=== PATIENT | female | born 1945 | race Caucasian/White ===

== ENCOUNTER 2022-02-20 05:19 | Day surgery (SDC) | payer MEDICARE ==
[~2022-02-20] VITALS: Ht 152.4 cm; Wt 96.5 kg
[2022-02-20] VITALS (7 sets, daily range): BP systolic 123–149; BP diastolic 50–67; PULSE 61–93; TEMP 97.6–98.5
[2022-02-20] MEDS ORDERED: SYNTHROID0.088 MG/T PO (06:21)
[2022-02-20] MEDS ORDERED: HYZAAR 50-12.1 UDTAB PO (06:21)
[2022-02-20] MEDS ORDERED: CARDIZEM CD 24240 MG PO (06:22)
[2022-02-20] MEDS ORDERED: CYMBALTA 60MG60 MG PO (06:22)
[2022-02-20] MEDS ORDERED: CELEBREX 200MG200 MG PO (06:22)
[2022-02-20] MEDS ORDERED: ALLERGY RELIEF PO (06:23)
[2022-02-20] MEDS ORDERED: PRAVACHOL 40MG40 MG PO (06:23)
--- NOTE | 2022-02-20 18:12 | NUR ---
Pt. sitting up in bed at this time. at bedside. Gave scheduled toradol. Pt. would like to avoid narcotics if possible. Pt. did get up to the commode once this afternoon. Pt. able to void see charting. Pt. denies further needs, call light within reach.
--- NOTE | 2022-02-20 21:43 | NUR ---
PATIENT IN BED ON ROOM ENTRY. ALERT AND ORIENTED. HS MEDS PER EMAR. X2 ASSIST TO BEDSIDE COMMODE AND PRN KAJAL WAS GIVEN. L KNEE CDI WITH ALEXIS WRAP AND ICE. DENIES ADDITIONAL NEEDS. CALL LIGHT IN REACH.
[2022-02-21] VITALS (7 sets, daily range): BP systolic 118–154; BP diastolic 36–71; PULSE 73–87; TEMP 97.8–99.2
[2022-02-21 07:20] LABS: CREATININE, serum 0.97 mg/dL (0.57-1.11); POTASSIUM 3.7 mmol/L (3.5-4.5)
[2022-02-21 08:43] LABS: HEMOGLOBIN 10.8 g/dl (12.5-16.0)
[2022-02-21 08:47] LABS: HEMATOCRIT 33.2 % (37.0-47.0)
--- NOTE | 2022-02-21 09:49 | NUR ---
Initial visit; Patient thanked [employer]er for stopping and letting her know of the availability of [facility]. Patient has no needs this morning.
--- NOTE | 2022-02-21 10:25 | NUR ---
PT UP TO RECLINER WITH SBAX1. PT DENIES NEEDS, OR PAIN AT THIS TIME. DRESSING TO LEFT KNEE CDI. TEDS APPLIED PER PHYSICIAN VERBAL ORDER.
--- NOTE | 2022-02-21 15:19 | NUR ---
UPDATED DR. BRYANT ON PT STATUS AFTER THERAPY. DISCHARGE CANCELLED.
--- NOTE | 2022-02-21 15:32 | NUR ---
used building materials yard worker met with patient to complete intake and discuss discharge plan. Patient reports that she lives at home with her Maynor ([phone]). Maynor is present at bedside. Patient reports that prior to surgery her would her her with ADL's due to her knee pain. She was utilizing a cane to assist with ambulation but recently had to switch to a walker. She has no home oxygen needs. PCP is Dr. Cook and she utilizes [facility] for prescriptions. Patient reports that she does not have a DPOA-HC established at this time. She is planning on returning home once medically ready. PT arrives to work with the patient. Discharge plan: Home
--- NOTE | 2022-02-21 19:53 | NUR ---
PT A&OX4 RESTING IN BED. MEDS GIVEN AND ASSESSMENT COMPLETE. PT DENIES PN. LT KNEE AQUACELL DRESSING CDI. INT TO RF. SCDS FOR DVT PROPHYLAXIS. NO NEEDS AT THIS TIME. CALL LIGHT WITHIN REACH.
[2022-02-22 00:01] VITALS: BP 155/55; PULSE 84; TEMP 98.6
--- NOTE | 2022-02-22 02:30 | NUR ---
ASSISTED PT TO BATHROOM. REPORTS FEELING NAUSEAS WHEN SHE GETS UP.
[2022-02-22 04:13] VITALS: BP 159/59; PULSE 81; TEMP 98.1
[2022-02-22 07:39] VITALS: BP 144/59; PULSE 80; TEMP 98.4
--- NOTE | 2022-02-22 09:18 | NUR ---
PT RESTING IN ROOM WAITING FOR THERAPY AND THEN DISCHARGE AFTER WORKING WITH THERAPY THIS AM.
--- NOTE | 2022-02-22 09:41 | NUR ---
Initial visit; Patient thanked Company Laundry Worker for looking in on her and offering God's blessings. Patient's was present to add support for Laura.
--- NOTE | 2022-02-22 12:16 | NUR ---
DISCHARGE INSTRUCTIONS REVIEWED WITH PT AND , QUESTIONS SOLICITED AND ANSWERED. PT LEFT UNIT BY WHEEL CHAIR.
== END 2022-02-22 12:21 | disposition home or self-care (01) ==
LOC: SURG 05:19 → SDCO 05:19 → SURG 10:47 → SDCO 02-22 12:21
PROVIDERS: Orthopaedic Surgery
DX: M17.12 Unilateral primary osteoarthritis, left knee (principal); M25.762 Osteophyte, left knee; E66.9 Obesity, unspecified; K21.9 Gastro-esophageal reflux disease without esophagitis; C55 Malignant neoplasm of uterus, part unspecified; Z68.39 Body mass index [BMI] 39.0-39.9, adult
CPT/HCPCS: OP; A9284; C1713; C1776; J0690; J1885; J2250; J2405; J2704; J3010; J7120